=== PATIENT | female | born 1990 | race American Indian/Alaskan Native ===

== ENCOUNTER 2021-07-18 17:34 | Inpatient (IN) | payer MEDICAID ==
[2021-07-18] MEDS ORDERED: TERBUTALINE 1 MG/1 ML INJ SUB-Q PRN (19:35)
[2021-07-18] MEDS ORDERED: fentaNYL 100 MCG/2 ML INJ IV PRN (19:35)
[2021-07-18] MEDS ORDERED: METHYLERGONOVINE MALEATE 0.2 MG/ML VIAL IM PRN (19:35)
[2021-07-18] MEDS ORDERED: BUTORPHANOL 2 MG/1 ML INJ IV PRN ×2 (19:35)
[2021-07-18] MEDS ORDERED: ACETAMINOPHEN 325 MG TAB PO PRN (19:35)
[2021-07-18] MEDS ORDERED: LACTATED RINGERS 1,000 ML ONE (19:35)
[2021-07-18] MEDS ORDERED: OXYTOCIN 10 UNIT/1 ML INJ IM PRN (19:35)
[2021-07-18] MEDS ORDERED: AMPICILLIN/NS 2 GM/100 ML 2 GM/100 ML BAG IV ONE (19:35)
[2021-07-18] MEDS ORDERED: miSOPROStol 200 MCG TAB PR PRN (19:35)
[2021-07-18] MEDS ORDERED: LOPERAMIDE 2 MG CAP PO PRN (19:35)
[2021-07-18] MEDS ORDERED: CARBOPROST TROMETHAMINE 250 MCG/1 ML INJ IM PRN (19:35)
[2021-07-18] MEDS ORDERED: MINERAL OIL 30 ML ORAL LIQD PO PRN (19:35)
[2021-07-18] MEDS ORDERED: LIDOCAINE (2%) 20 MG/1 ML VIAL 20 ML MDV INFILTRATI ONE (19:35)
[2021-07-18] MEDS ORDERED: OXYTOCIN DRIP 30 UNITS/500 ML BAG IV SCH (20:00)
[2021-07-18 20:32] LABS: Hemoglobin 10.4 gm/dl (10.1-14.3); Mean Corpuscular HGB Conc 34 % (30-34); Mean Corpuscular Volume 85 fl (79-97); Platelet Count 255 K/mm3 (140-440); Red Blood Count 3.63 M/mm3 (3.65-5.03); Red Cell Distribution Width 14.9 % (13.2-15.2)
[2021-07-18] MEDS ORDERED: MAGNESIUM SULFATE 2 GM/50 ML BAG IV ONE (20:39)
[2021-07-18 20:51] LABS: Uric Acid 4.6 mg/dL (3.5-7.6)
[2021-07-18 20:54] LABS: Alanine Aminotransferase < 5 units/L (7-56)
[2021-07-18] MEDS: LACTATED RINGERS 1,000 ML IV SCH (20:56)
[2021-07-18] MEDS: OXYTOCIN DRIP 30 UNITS/500 ML BAG IV SCH (20:57)
[2021-07-18] MEDS: AMPICILLIN/NS 1 GM/50 ML 1 GM/50 ML BAG IV SCH (22:45)
[2021-07-18] MEDS: MAGNESIUM SULFATE 40GM/1000ML 40 GM/1,000 ML BAG IV SCH (22:49)
[2021-07-18] MEDS ORDERED: fentaNYL-BUPIV 2 MCG/ML-0.125% 200 MCG/100 ML BAG EPIDURAL ONE (22:52)
[2021-07-18 23:03] LABS: Bilirubin,Urine SM (Negative); Blood,Urine NEG (Negative); Color,Urine Amber (Yellow); Mucus,Urine 3+ /HPF; RBC,Urine < 1.0 /HPF (0.0-6.0)
[2021-07-18] MEDS ORDERED: NALOXONE 2 MG/2 ML INJ IV PRN (23:04)
[2021-07-18] MEDS ORDERED: ePHEDrine SULFATE 50 MG/1 ML INJ IV PRN (23:04)
[2021-07-18 23:12] LABS: Ictotest,Urine Negative (Negative)
--- NOTE | 2021-07-18 23:50 | Anesthesia Consultation ---
Anesthesia Consult and Med Hx Date of service: 07/18/21 - Airway Anesthetic Teeth Evaluation: Poor ROM Head & Neck: Adequate Mental/Hyoid Distance: Adequate Mallampati Class: Class III Intubation Access Assessment: Possibly Difficult - Pulmonary Exam CTA: Yes - Cardiac Exam Cardiac Exam: RRR - Pre-Operative Health Status ASA Pre-Surgery Classification: ASA3 Proposed Anesthetic Plan: Epidural - Pulmonary Hx Smoking: No Hx Asthma: No Hx Respiratory Symptoms: No SOB: No COPD: No Home Oxygen Therapy: No Hx Pneumonia: No Hx Sleep Apnea: No - Cardiovascular System Hx Hypertension: No Hx Coronary Artery Disease: No Hx Heart Attack/AMI: No Hx Angina: No Hx Percutaneous Transluminal Coronary Angioplasty (PTCA): No Hx Cardia Arrhythmia: No Hx Pacemaker: No Hx Internal Defibrillator: No Hx Valvular Heart Disease: No Hx Heart Murmur: No Hx Peripheral Vascular Disease: No - Central Nervous System Hx Neuromuscular Disorder: No Hx Seizures: No CVA: No Hx Back Pain: Yes Hx Psychiatric Problems: No - Gastrointestinal Hx Ulcer: No Hx Gastroesophageal Reflux Disease: Yes - Endocrine Hx Renal Disease: No Hx End Stage Renal Disease: No Hx Cirrhosis: No Hx Liver Disease: No Hx Insulin Dependent Diabetes: No Hx Non-Insulin Dependent Diabetes: No Hx Thyroid Disease: No Hx Hypothyroidism: No Hx Hyperthyroidism: No - Hematic Hx Anemia: No Hx Sickle Cell Disease: No - Other Systems Hx Alcohol Use: No Hx Substance Use: No Hx Cancer: No Hx Obesity: Yes
[2021-07-18] MEDS: fentaNYL-BUPIV 2 MCG/ML-0.125% 200 MCG/100 ML BAG EPIDURAL SCH (23:51)
--- NOTE | 2021-07-18 23:54 | Progress Note ---
Labor Epidural - Labor Epidural Start Time: 23:21 Stop Time: 23:35 Performed by:: FARRUKH GASPAR Procedure: Patient is requesting a laboring epidural for laboring pain. Patient IDed, H&P reviewed, all questions and concerns were answered, and consent was signed. Timeout was performed at bedside. Patient in sitting position. Sterile prep and drape was performed. [3] ml of 1% lidocaine skin wheal at L[3]- L [4]. 18- gauge Usman epidural needle was advanced to loss of resistance with saline technique 8cm. Negative CSF negative blood. Epidural catheter advanced to [12] centimeters. [NEGATIVE] Aspiration [NEGATIVE] test dose. Sterile dressing applied. Patient tolerated procedure.
[2021-07-19] MEDS: ePHEDrine SULFATE 50 MG/1 ML INJ IV PRN ×3 (00:35→00:52)
--- NOTE | 2021-07-19 00:47 | History and Physical Report ---
History of Present Illness Date of examination: 07/18/21 Date of admission: 07/18/21 17:34 Chief complaint: I was sent here to be induced. History of present illness: 31 y/o AA female presented to L&D for an IOL r/t LOUIE per LISA. Pt denies VB or LOF, but admits to marcelo, visual disturbances, and active FM. Pt states she initiated her pnc at [facility] early in her preg. She was co managed by LISA r/t DEYANIRA. She reports an ob hx of PI with each preg. She denies any other med or obstetrical problems. Unremarkable surgical, social, and family hx. Her GBS is unknown. Pt was admitted to L&D for an IOL. Past History Past Medical History: other ([facility]) Past Surgical History: no surgical history Family/Genetic History: none Social history: single, full code - Obstetrical History Expected Date of Delivery: 08/06/21 Actual Gestation: 37 Week(s) 3 Day(s) : 5 Para: 4 Hx # Term Pregnancies: 4 Number of Living Children: 4 Medications and Allergies Allergies Allergy/AdvReac Type Severity Reaction Status Date / Time shellfish derived AdvReac Hives Verified 08/05/18 22:24 Home Medications Medication Instructions Recorded Confirmed Last Taken Type Labetalol 100 mg PO BID 08/05/18 08/05/18 08/05/18 09:30 History HYDROcodone/APAP 5-325 [Marlow 1 each PO Q6HR PRN #5 tablet 08/06/18 Unknown Rx 5/325] Ibuprofen [Motrin 800 MG tab] 800 mg PO Q8HR PRN #30 tablet 08/06/18 Unknown Rx Multivitamin with Iron 1 each PO DAILY #30 tablet 08/06/18 Unknown Rx [Multivitamins with Iron] Active Meds: Active Medications Acetaminophen (Acetaminophen 325 Mg Tab) 650 mg PO Q4H PRN PRN Reason: Pain, Mild (1-3) Butorphanol Tartrate (Butorphanol 2 Mg/1 Ml Inj) 1 mg IV Q2H PRN PRN Reason: Pain, Moderate(4-6) LABOR PAIN Butorphanol Tartrate (Butorphanol 2 Mg/1 Ml Inj) 2 mg IV Q2H PRN PRN Reason: Pain , Severe (7-10) Carboprost Tromethamine (Carboprost Tromethamine 250 Mcg/1 Ml Inj) 250 mcg IM ONCE PRN PRN Reason: Uterine Bleeding Ephedrine Sulfate (Ephedrine Sulfate 50 Mg/1 Ml Inj) 10 mg IV Q2M PRN PRN Reason: Hypotension Fentanyl (Fentanyl 100 Mcg/2 Ml Inj) 100 mcg IV Q2H PRN PRN Reason: Pain,Severe (7-10) LABOR PAIN Oxytocin/Sodium Chloride (Pitocin/Ns 30 Unit/500ml) 30 units in 500 mls @ 2 mls/hr IV TITR RAYMOND; Protocol Last Titration: 07/18/21 23:00 Dose: 10 ml/hr, 10 mls/hr Documented by: Lactated Ringer's (Lactated Ringers) 1,000 mls @ 125 mls/hr IV DIRECT RAYMOND Last Admin: 07/18/21 20:56 Dose: 125 mls/hr Documented by: Oxytocin/Sodium Chloride (Pitocin/Ns 30 Unit/500ml) 30 units in 500 mls @ 40 mls/hr IV TITR RAYMOND; Protocol Ampicillin Sodium (Ampicillin/Ns 1 Gm/50 Ml) 1 gm in 50 mls @ 100 mls/hr IV Q4H RAYMOND; Protocol Last Admin: 07/18/21 22:45 Dose: 100 mls/hr Documented by: Magnesium Sulfate (Magnesium Sulfate 40gm/1000ml) 40 gm in 1,000 mls @ 25 mls/hr IV DIRECT RAYMOND Last Admin: 07/18/21 22:49 Dose: 1 gm/hr, 25 mls/hr Documented by: Fentanyl/Bupivacaine/Sodium Chlor (Fentanyl-Bupiv 2 Mcg/Ml-0.125%) 200 mcg in 100 mls @ 12 mls/hr EPIDURAL TITR RAYMOND; Protocol Last Admin: 07/18/21 23:51 Dose: 12 mls/hr Documented by: Loperamide HCl (Loperamide 2 Mg Cap) 2 mg PO ONCE PRN PRN Reason: give with Hemabate Methylergonovine Maleate (Methylergonovine Maleate 0.2 Mg/Ml Vial) 0.2 mg IM ONCE PRN PRN Reason: Uterine Bleeding Mineral Oil (Mineral Oil 30 Ml Oral Liqd) 30 ml PO QHS PRN PRN Reason: Constipation Misoprostol (Misoprostol 200 Mcg Tab) 800 mcg VA ONCE PRN PRN Reason: Uterine Bleeding Naloxone HCl (Naloxone 2 Mg/2 Ml Inj) 0.2 mg IV Q5M PRN PRN Reason: Respiratory sedation Ondansetron HCl (Ondansetron 4 Mg/2 Ml Inj) 4 mg IV Q8H PRN PRN Reason: Nausea And Vomiting Oxytocin (Oxytocin 10 Unit/1 Ml Inj) 10 unit IM ONCE PRN PRN Reason: Uterine Bleeding Terbutaline Sulfate (Terbutaline 1 Mg/1 Ml Inj) 0.25 mg SUB-Q ONCE PRN PRN Reason: Hyperstimulation/Hypertonicity Review of Systems All systems: negative Eyes: deferred Ears, nose, mouth and throat: deferred Breasts: normal Genitourinary: normal appearance Rectal Exam: normal exam-external/orifice - Vital Signs Vital signs: Vital Signs Pulse BP 74 113/76 07/18/21 18:59 07/18/21 18:59 Temp Pulse Resp BP Pulse Ox 98.1 F 77 81/44 98 07/18/21 19:30 07/19/21 00:44 07/19/21 00:42 07/19/21 00:44 - Physical Exam Breasts: Positive: normal Abdomen: Positive: normal appearance, soft, normal bowel sounds, other (GRAVID) Genitourinary (Female): Positive: normal external genitalia, normal perenium Vulva: both: normal Vagina: Positive: normal moisture Uterus: Positive: enlarged, normal contour, other (GRAVID) Adnexa: both: normal Anus/Rectum: Positive: normal perianal skin Extremities: Positive: normal Deep Tendon Reflex Grade: Normal +2 - Obstetrical FHR: auscultation normal, category 1 Uterine Contraction Monitor Mode: External Cervical Dilatation: 3 Cervical Effacement Percentage: 60 station: -3 Uterine Contraction Pattern: Irregular Uterine Tone Measurement Phase: Resting Uterine Contraction Intensity: Mild Results Result Diagrams: 07/18/21 19:50 07/18/21 19:50 Abnormal lab results 07/18/21 07/18/21 07/18/21 Range/Units 19:50 19:50 22:36 WBC 11.8 H (4.5-11.0) K/mm3 RBC 3.63 L (3.65-5.03) M/mm3 Creatinine 0.5 L (0.6-1.2) mg/dL ALT < 5 L (7-56) units/L Lactate Dehydrogenase 326 H (91-180) units/L Ur Specific [place] 1.035 H (1.003-1.030) All other labs normal. Assessment and Plan A: IUP@ 37.3 wks with PIH No PNR GBS status unknown P: Admit to L&D for an IOL Start MgSo4 per orders Mg Levels q 6h PIH labs Continuos monitoring Pain med/Epidural prn GBS protocal Obtain PNR in am Anticipate - Patient Problems (1) Supervision of normal IUP (intrauterine ) in multigravida Current Visit: Yes Status: Acute
[2021-07-19] MEDS: AMPICILLIN/NS 1 GM/50 ML 1 GM/50 ML BAG IV SCH ×2 (03:40→21:55)
[2021-07-19] MEDS: ONDANSETRON 4 MG/2 ML INJ IV PRN ×2 (08:40→17:16)
--- NOTE | 2021-07-19 11:00 | Event Note ---
Date: 07/19/21 Assumed care of patient at 10:30 AM. SVE 4/70/-2. Patient positioned in left lateral position with peanut ball. Vital signs stable. FHR reassuring.
[2021-07-19] MEDS: fentaNYL-BUPIV 2 MCG/ML-0.125% 200 MCG/100 ML BAG EPIDURAL SCH (16:06)
[2021-07-19] MEDS: OXYTOCIN DRIP 30 UNITS/500 ML BAG IV SCH (16:13)
[2021-07-19] MEDS: LACTATED RINGERS 1,000 ML IV SCH (16:13)
--- NOTE | 2021-07-19 17:11 | Event Note ---
Date: 07/19/21 Patient had several variable FHR decelerations; normal FHR baseline and moderate variability. IUPC inserted without difficulty and amnioinfusion ordered. SVE 5/100/-1.
[2021-07-19] MEDS ORDERED: SODIUM CHLORIDE 0.9% 1000 ML 1,000 ML VG SCH (17:15)
--- NOTE | 2021-07-20 00:17 | Procedure Note ---
OB Delivery Note - Delivery Date of Delivery: 07/20/21 Surgeon: ALEXANDRU BOATENG Estimated blood loss: other (250 cc) - Vaginal Delivery presentation: vertex Delivery position: OA Intrapartum events: none Delivery induction: none Delivery augmentation: pitocin Delivery monitor: external FHT, external uterine Delivery placenta: spontaneous Delivery cord: 3 umbilical vessels Episiotomy: none Delivery laceration: 1st degree Delivery repair: vicryl Anesthesia: intravenous Delivery comments: Spontaneous vaginal delivery at 23:11 of liveborm male infant weighing 7 lb. 2 oz. over first degree perineal laceration with apgars of 8/9. was atraumatic; no nuchal cord. Baby was placed skin to skin with mom immediately after delivery. Baby dried with warm blankets, suctioned with bulb syringe and stimulated. Spontaneous cry and respirations. 3 vessel cord double clamped and cut (delayed cord clamping) and baby taken to radiant warmer for further suctioning. Spontaneous delivery of intact placenta and membranes. EBL 250 cc. Pitocin to IV fluids after delivery of placenta. Fundus firm and midline. Very small first degree perineal laceration repaired with 3-0 vicryl. No other lacerations noted. Vaginal sweep negative. Sponge count correct. Mother and baby stable in birthing room.
[2021-07-20] MEDS: MAGNESIUM SULFATE 40GM/1000ML 40 GM/1,000 ML BAG IV SCH ×2 (00:46→17:01)
[2021-07-20] MEDS ORDERED: hydrALAZINE 20 MG/1 ML INJ IV PRN (00:50)
--- NOTE | 2021-07-20 00:55 | Event Note ---
Date: 07/20/21 BPs starting to go up again. Magnesium Sulfate restarted. See orders. Mag levels ordered. Hydralazine ordered.
[2021-07-20] MEDS ORDERED: ONDANSETRON 4 MG/2 ML INJ IV PRN (01:25)
[2021-07-20] MEDS ORDERED: WITCH HAZEL/ GLYCERIN PAD TP PRN (01:25)
[2021-07-20] MEDS ORDERED: LANOLIN/ZINC/DIMETHICONE (LANSINOH) 7 GM TP PRN (01:25)
[2021-07-20] MEDS ORDERED: MAGNESIUM HYDROXIDE (MOM) ORAL LIQD UDC PO PRN (01:25)
[2021-07-20] MEDS ORDERED: ACETAMINOPHEN 325 MG TAB PO PRN (01:25)
[2021-07-20] MEDS: IBUPROFEN 600 MG TAB PO SCH ×2 (01:41→17:25)
--- NOTE | 2021-07-20 02:02 | Post Anesthesia Evaluation ---
- Post Anesthesia Evaluation Patient Participated: Yes Airway Patent: Yes Stable Respiratory Function: Yes Nausea/Vomiting: No Temp > 96.8F: Yes Pain Manageable: Yes Adequeate Hydration: Yes Anesthesia Complications: No Block Receding Appropriately: Yes Patient on Ventilator: No
--- NOTE | 2021-07-20 06:43 | Progress Note ---
Assessment and Plan PPD#1 on mag sulfate for preeclampsia; pt is normotensive 1. Complete 24hr mag and then transfer to mother/baby for routine 2. all question encouraged and answered Subjective Date of service: 07/20/21 Principal diagnosis: PPD#1 , PIH resolved Interval history: Pt denies headache. Vag bleed less than a period. Denies pelvic pain and mag sulfate currently in progress. Urine in [facility] cath adequate. Objective - Constitutional Vitals: Vital Signs - 12hr 07/19/21 07/19/21 07/19/21 18:42 18:47 18:52 Temperature Pulse Rate 81 69 70 Respiratory Rate Blood Pressure Blood Pressure [Right] O2 Sat by Pulse 99 100 100 Oximetry O2 Sat by Pulse Oximetry [ Bilateral Throughout] 07/19/21 07/19/21 07/19/21 18:57 19:02 19:07 Temperature Pulse Rate 74 72 78 Respiratory Rate Blood Pressure Blood Pressure [Right] O2 Sat by Pulse 100 100 100 Oximetry O2 Sat by Pulse Oximetry [ Bilateral Throughout] 07/19/21 07/19/21 07/19/21 19:12 19:17 19:22 Temperature Pulse Rate 82 78 69 Respiratory Rate Blood Pressure Blood Pressure [Right] O2 Sat by Pulse 100 100 100 Oximetry O2 Sat by Pulse Oximetry [ Bilateral Throughout] 07/19/21 07/19/21 07/19/21 19:25 19:27 19:32 Temperature 98.1 F Pulse Rate 77 76 70 Respiratory 12 Rate Blood Pressure Blood Pressure 109/60 [Right] O2 Sat by Pulse 100 100 100 Oximetry O2 Sat by Pulse 100 Oximetry [ Bilateral Throughout] 07/19/21 07/19/21 07/19/21 19:37 19:42 19:47 Temperature Pulse Rate 78 73 77 Respiratory Rate Blood Pressure Blood Pressure [Right] O2 Sat by Pulse 100 100 100 Oximetry O2 Sat by Pulse Oximetry [ Bilateral Throughout] 07/19/21 07/19/21 07/19/21 19:52 19:57 20:02 Temperature Pulse Rate 72 76 81 Respiratory Rate Blood Pressure Blood Pressure [Right] O2 Sat by Pulse 100 100 100 Oximetry O2 Sat by Pulse Oximetry [ Bilateral Throughout] 07/19/21 07/19/21 07/19/21 20:07 20:12 20:17 Temperature Pulse Rate 81 86 88 Respiratory Rate Blood Pressure Blood Pressure [Right] O2 Sat by Pulse 100 100 100 Oximetry O2 Sat by Pulse Oximetry [ Bilateral Throughout] 07/19/21 07/19/21 07/19/21 20:22 20:27 20:32 Temperature Pulse Rate 78 85 83 Respiratory Rate Blood Pressure Blood Pressure [Right] O2 Sat by Pulse 100 100 100 Oximetry O2 Sat by Pulse Oximetry [ Bilateral Throughout] 07/19/21 07/19/21 07/19/21 20:37 20:42 20:47 Temperature Pulse Rate 77 71 73 Respiratory Rate Blood Pressure Blood Pressure [Right] O2 Sat by Pulse 100 100 100 Oximetry O2 Sat by Pulse Oximetry [ Bilateral Throughout] 07/19/21 07/19/21 07/19/21 20:52 20:57 21:02 Temperature Pulse Rate 70 70 73 Respiratory Rate Blood Pressure Blood Pressure [Right] O2 Sat by Pulse 100 100 100 Oximetry O2 Sat by Pulse Oximetry [ Bilateral Throughout] 07/19/21 07/19/21 07/19/21 21:07 21:12 21:17 Temperature Pulse Rate 74 99 H 71 Respiratory Rate Blood Pressure Blood Pressure [Right] O2 Sat by Pulse 100 100 100 Oximetry O2 Sat by Pulse Oximetry [ Bilateral Throughout] 07/19/21 07/19/21 07/19/21 21:22 21:27 21:32 Temperature Pulse Rate 74 69 71 Respiratory Rate Blood Pressure Blood Pressure [Right] O2 Sat by Pulse 100 100 100 Oximetry O2 Sat by Pulse Oximetry [ Bilateral Throughout] 07/19/21 07/19/21 07/19/21 21:37 21:42 21:47 Temperature Pulse Rate 68 69 67 Respiratory Rate Blood Pressure Blood Pressure [Right] O2 Sat by Pulse 100 100 100 Oximetry O2 Sat by Pulse Oximetry [ Bilateral Throughout] 07/19/21 07/19/21 07/19/21 21:52 21:57 22:02 Temperature Pulse Rate 83 75 73 Respiratory Rate Blood Pressure Blood Pressure [Right] O2 Sat by Pulse 100 100 100 Oximetry O2 Sat by Pulse Oximetry [ Bilateral Throughout] 07/19/21 07/19/21 07/19/21 22:07 22:12 22:17 Temperature Pulse Rate 71 69 82 Respiratory Rate Blood Pressure Blood Pressure [Right] O2 Sat by Pulse 100 100 100 Oximetry O2 Sat by Pulse Oximetry [ Bilateral Throughout] 07/19/21 07/19/21 07/19/21 22:22 22:28 22:32 Temperature Pulse Rate 71 81 74 Respiratory Rate Blood Pressure Blood Pressure [Right] O2 Sat by Pulse 100 100 99 Oximetry O2 Sat by Pulse Oximetry [ Bilateral Throughout] 07/19/21 07/19/21 07/19/21 22:38 22:42 22:47 Temperature Pulse Rate 69 69 67 Respiratory Rate Blood Pressure Blood Pressure [Right] O2 Sat by Pulse 100 100 100 Oximetry O2 Sat by Pulse Oximetry [ Bilateral Throughout] 07/19/21 07/19/21 07/19/21 22:52 22:57 23:03 Temperature Pulse Rate 65 81 97 H Respiratory Rate Blood Pressure Blood Pressure [Right] O2 Sat by Pulse 100 100 100 Oximetry O2 Sat by Pulse Oximetry [ Bilateral Throughout] 07/19/21 07/19/21 07/19/21 23:07 23:12 23:17 Temperature Pulse Rate 95 H 86 86 Respiratory Rate Blood Pressure Blood Pressure [Right] O2 Sat by Pulse 100 100 100 Oximetry O2 Sat by Pulse Oximetry [ Bilateral Throughout] 07/19/21 07/19/21 07/19/21 23:22 23:28 23:32 Temperature Pulse Rate 78 100 H 86 Respiratory Rate Blood Pressure Blood Pressure [Right] O2 Sat by Pulse 100 100 100 Oximetry O2 Sat by Pulse Oximetry [ Bilateral Throughout] 07/19/21 07/19/21 07/19/21 23:38 23:43 23:48 Temperature Pulse Rate 88 86 89 Respiratory Rate Blood Pressure Blood Pressure [Right] O2 Sat by Pulse 100 100 100 Oximetry O2 Sat by Pulse Oximetry [ Bilateral Throughout] 07/19/21 07/19/21 07/20/21 23:53 23:57 00:03 Temperature Pulse Rate 95 H 80 73 Respiratory Rate Blood Pressure Blood Pressure [Right] O2 Sat by Pulse 100 99 99 Oximetry O2 Sat by Pulse Oximetry [ Bilateral Throughout] 07/20/21 07/20/21 07/20/21 00:08 00:13 00:17 Temperature Pulse Rate 79 77 82 Respiratory Rate Blood Pressure Blood Pressure [Right] O2 Sat by Pulse 100 100 99 Oximetry O2 Sat by Pulse Oximetry [ Bilateral Throughout] 07/20/21 07/20/21 07/20/21 00:23 00:24 00:28 Temperature Pulse Rate 77 73 76 Respiratory Rate Blood Pressure 144/93 Blood Pressure [Right] O2 Sat by Pulse 99 98 Oximetry O2 Sat by Pulse Oximetry [ Bilateral Throughout] 07/20/21 07/20/21 07/20/21 00:33 00:38 00:41 Temperature Pulse Rate 75 78 71 Respiratory Rate Blood Pressure 166/94 Blood Pressure [Right] O2 Sat by Pulse 100 99 Oximetry O2 Sat by Pulse Oximetry [ Bilateral Throughout] 07/20/21 07/20/21 07/20/21 00:43 00:48 00:53 Temperature Pulse Rate 74 74 67 Respiratory Rate Blood Pressure 159/89 Blood Pressure [Right] O2 Sat by Pulse 100 100 100 Oximetry O2 Sat by Pulse Oximetry [ Bilateral Throughout] 07/20/21 07/20/21 07/20/21 00:56 00:57 00:59 Temperature Pulse Rate 67 69 Respiratory Rate Blood Pressure 160/83 Blood Pressure [Right] O2 Sat by Pulse 100 Oximetry O2 Sat by Pulse 99 Oximetry [ Bilateral Throughout] 07/20/21 07/20/21 07/20/21 01:00 01:03 01:08 Temperature 98.2 F Pulse Rate 72 73 Respiratory Rate Blood Pressure Blood Pressure [Right] O2 Sat by Pulse 99 100 Oximetry O2 Sat by Pulse Oximetry [ Bilateral Throughout] 07/20/21 07/20/21 07/20/21 01:11 01:13 01:18 Temperature Pulse Rate 65 74 64 Respiratory Rate Blood Pressure 147/71 Blood Pressure [Right] O2 Sat by Pulse 100 99 Oximetry O2 Sat by Pulse Oximetry [ Bilateral Throughout] 07/20/21 07/20/21 07/20/21 01:23 01:26 01:28 Temperature Pulse Rate 66 64 90 Respiratory Rate Blood Pressure 145/75 Blood Pressure [Right] O2 Sat by Pulse 99 98 Oximetry O2 Sat by Pulse Oximetry [ Bilateral Throughout] 07/20/21 07/20/21 07/20/21 01:33 01:38 01:41 Temperature Pulse Rate 75 75 66 Respiratory Rate Blood Pressure 145/80 Blood Pressure [Right] O2 Sat by Pulse 100 99 Oximetry O2 Sat by Pulse Oximetry [ Bilateral Throughout] 07/20/21 07/20/21 07/20/21 01:43 01:48 01:53 Temperature Pulse Rate 71 71 72 Respiratory Rate Blood Pressure Blood Pressure [Right] O2 Sat by Pulse 100 100 100 Oximetry O2 Sat by Pulse Oximetry [ Bilateral Throughout] 07/20/21 07/20/2121 01:56 01:57 02:03 Temperature Pulse Rate 65 66 63 Respiratory Rate Blood Pressure 157/88 Blood Pressure [Right] O2 Sat by Pulse 99 100 Oximetry O2 Sat by Pulse Oximetry [ Bilateral Throughout] 07/20/21 07/20/21 07/20/21 02:08 02:11 02:13 Temperature Pulse Rate 66 63 65 Respiratory Rate Blood Pressure 140/75 Blood Pressure [Right] O2 Sat by Pulse 100 100 Oximetry O2 Sat by Pulse Oximetry [ Bilateral Throughout] 07/20/21 07/20/21 07/20/21 02:18 02:23 02:26 Temperature Pulse Rate 66 64 63 Respiratory Rate Blood Pressure 135/78 Blood Pressure [Right] O2 Sat by Pulse 100 100 Oximetry O2 Sat by Pulse Oximetry [ Bilateral Throughout] 07/20/21 07/20/21 07/20/21 02:28 02:33 02:38 Temperature Pulse Rate 64 64 63 Respiratory Rate Blood Pressure Blood Pressure [Right] O2 Sat by Pulse 100 100 99 Oximetry O2 Sat by Pulse Oximetry [ Bilateral Throughout] 07/20/21 07/20/21 07/20/21 02:41 02:43 02:48 Temperature Pulse Rate 64 76 68 Respiratory Rate Blood Pressure 133/77 Blood Pressure [Right] O2 Sat by Pulse 100 100 Oximetry O2 Sat by Pulse Oximetry [ Bilateral Throughout] 07/20/21 07/20/21 07/20/21 02:53 02:56 02:58 Temperature Pulse Rate 83 67 83 Respiratory Rate Blood Pressure 134/79 Blood Pressure [Right] O2 Sat by Pulse 99 100 Oximetry O2 Sat by Pulse Oximetry [ Bilateral Throughout] 07/20/21 07/20/21 07/20/21 03:03 03:08 03:11 Temperature Pulse Rate 67 68 65 Respiratory Rate Blood Pressure 130/75 Blood Pressure [Right] O2 Sat by Pulse 99 99 Oximetry O2 Sat by Pulse Oximetry [ Bilateral Throughout] 07/20/21 07/20/21 07/20/21 03:13 03:18 03:23 Temperature Pulse Rate 73 75 66 Respiratory Rate Blood Pressure Blood Pressure [Right] O2 Sat by Pulse 100 100 100 Oximetry O2 Sat by Pulse Oximetry [ Bilateral Throughout] 07/20/21 07/20/21 07/20/21 03:26 03:28 03:33 Temperature Pulse Rate 68 67 66 Respiratory Rate Blood Pressure 134/83 Blood Pressure [Right] O2 Sat by Pulse 100 98 Oximetry O2 Sat by Pulse Oximetry [ Bilateral Throughout] 07/20/21 07/20/21 07/20/21 03:38 03:41 03:43 Temperature Pulse Rate 71 67 74 Respiratory Rate Blood Pressure 134/76 Blood Pressure [Right] O2 Sat by Pulse 100 100 Oximetry O2 Sat by Pulse Oximetry [ Bilateral Throughout] 07/20/21 07/20/21 07/20/21 03:48 03:53 03:56 Temperature Pulse Rate 81 64 71 Respiratory Rate Blood Pressure 127/79 Blood Pressure [Right] O2 Sat by Pulse 100 100 Oximetry O2 Sat by Pulse Oximetry [ Bilateral Throughout] 07/20/21 07/20/21 07/20/21 03:58 04:03 04:08 Temperature Pulse Rate 71 68 69 Respiratory Rate Blood Pressure Blood Pressure [Right] O2 Sat by Pulse 100 100 100 Oximetry O2 Sat by Pulse Oximetry [ Bilateral Throughout] 07/20/21 07/20/21 07/20/21 04:11 04:13 04:18 Temperature Pulse Rate 68 67 76 Respiratory Rate Blood Pressure 129/77 Blood Pressure [Right] O2 Sat by Pulse 100 100 Oximetry O2 Sat by Pulse Oximetry [ Bilateral Throughout] 07/20/21 07/20/21 07/20/21 04:23 04:26 04:28 Temperature Pulse Rate 72 68 73 Respiratory Rate Blood Pressure 114/67 Blood Pressure [Right] O2 Sat by Pulse 99 99 Oximetry O2 Sat by Pulse Oximetry [ Bilateral Throughout] 07/20/21 07/20/21 07/20/21 04:33 04:38 04:41 Temperature Pulse Rate 68 67 65 Respiratory Rate Blood Pressure 107/61 Blood Pressure [Right] O2 Sat by Pulse 100 100 Oximetry O2 Sat by Pulse Oximetry [ Bilateral Throughout] 07/20/21 07/20/21 07/20/21 04:43 04:48 04:53 Temperature Pulse Rate 66 66 66 Respiratory Rate Blood Pressure Blood Pressure [Right] O2 Sat by Pulse 100 100 100 Oximetry O2 Sat by Pulse Oximetry [ Bilateral Throughout] 07/20/21 07/20/21 07/20/21 04:56 04:58 05:03 Temperature Pulse Rate 65 70 66 Respiratory Rate Blood Pressure 110/70 Blood Pressure [Right] O2 Sat by Pulse 100 100 Oximetry O2 Sat by Pulse Oximetry [ Bilateral Throughout] 07/20/21 07/20/21 07/20/21 05:08 05:11 05:13 Temperature Pulse Rate 76 67 72 Respiratory Rate Blood Pressure 113/72 Blood Pressure [Right] O2 Sat by Pulse 100 100 Oximetry O2 Sat by Pulse Oximetry [ Bilateral Throughout] 07/20/21 07/20/21 07/20/21 05:18 05:23 05:26 Temperature Pulse Rate 67 66 72 Respiratory Rate Blood Pressure 119/75 Blood Pressure [Right] O2 Sat by Pulse 100 100 Oximetry O2 Sat by Pulse Oximetry [ Bilateral Throughout] 07/20/21 07/20/21 07/20/21 05:28 05:33 05:38 Temperature Pulse Rate 69 65 71 Respiratory Rate Blood Pressure Blood Pressure [Right] O2 Sat by Pulse 100 99 99 Oximetry O2 Sat by Pulse Oximetry [ Bilateral Throughout] 07/20/21 07/20/21 07/20/21 05:43 05:48 05:53 Temperature Pulse Rate 69 70 69 Respiratory Rate Blood Pressure Blood Pressure [Right] O2 Sat by Pulse 99 99 99 Oximetry O2 Sat by Pulse Oximetry [ Bilateral Throughout] 07/20/21 07/20/21 07/20/21 05:58 06:03 06:08 Temperature Pulse Rate 71 69 74 Respiratory Rate Blood Pressure Blood Pressure [Right] O2 Sat by Pulse 99 99 99 Oximetry O2 Sat by Pulse Oximetry [ Bilateral Throughout] 07/20/21 07/20/21 07/20/21 06:11 06:13 06:18 Temperature Pulse Rate 81 77 70 Respiratory Rate Blood Pressure 122/77 Blood Pressure [Right] O2 Sat by Pulse 100 99 Oximetry O2 Sat by Pulse Oximetry [ Bilateral Throughout] 07/20/21 07/20/21 07/20/21 06:23 06:28 06:33 Temperature Pulse Rate 70 72 70 Respiratory Rate Blood Pressure Blood Pressure [Right] O2 Sat by Pulse 99 99 99 Oximetry O2 Sat by Pulse Oximetry [ Bilateral Throughout] General appearance: Present: no acute distress - Respiratory Respiratory effort: normal - Breasts Breasts: normal Extremities: No edema - Genitourinary Female genitourinary: other (Fundus firm, non-tender 2cm below umbilicus) - Neurologic Neurologic: CNII-XII intact - Psychiatric Psychiatric: appropriate mood/affect - Labs CBC & Chem 7: 07/18/21 19:50 07/18/21 19:50 Medications & Allergies - Medications Allergies/Adverse Reactions: Allergies shellfish derived Adverse Reaction (Verified 08/05/18 22:24) Hives Home Medications: Home Medications Medication Instructions Recorded Confirmed Last Taken Type Labetalol 100 mg PO BID 08/05/18 07/19/21 08/05/18 09:30 History Multivitamin with Iron 1 each PO DAILY #30 tablet 08/06/18 07/19/21 Unknown Rx [Multivitamins with Iron] Active Medications: Generic Name Dose Route Start Last Admin Trade Name Freq PRN Reason Stop Dose Admin Acetaminophen 650 mg 07/20/21 01:25 Acetaminophen 325 Mg Tab PO Q4H PRN Pain MILD(1-3)/Fever >100.5/LYONS Hydrocodone Bitart/Acetaminophen 2 each 07/20/21 01:25 Hydrocodone/Acetaminophen 5-325 Mg Tab PO Q6H PRN Pain, Moderate (4-6) Carboprost Tromethamine 250 mcg 07/18/21 19:35 Carboprost Tromethamine 250 Mcg/1 Ml Inj IM ONCE PRN Uterine Bleeding Docusate Sodium 100 mg 07/20/21 10:00 Docusate Sodium 100 Mg Cap PO BID RAYMOND Hydralazine HCl 5 mg 07/20/21 00:50 Hydralazine 20 Mg/1 Ml Inj IV Q30MIN PRN Hypertension Oxytocin/Sodium Chloride 30 units in 500 mls @ 2 mls/hr 07/18/21 20:00 07/19/21 17:26 Pitocin/Ns 30 Unit/500ml IV 2 mls/hr TITR RAYMOND Titration Protocol Oxytocin/Sodium Chloride 30 units in 500 mls @ 40 mls/hr 07/18/21 20:00 Pitocin/Ns 30 Unit/500ml IV TITR RAYMOND Protocol Magnesium Sulfate 40 gm in 1,000 mls @ 25 mls/hr 07/18/21 20:00 07/20/21 00:46 Magnesium Sulfate 40gm/1000ml IV 2 gm/hr DIRECT RAYMOND 50 mls/hr Administration 1 GM/HR Fentanyl/Bupivacaine/Sodium Chlor 200 mcg in 100 mls @ 12 mls/hr 07/18/21 23:45 07/19/21 16:06 Fentanyl-Bupiv 2 Mcg/Ml-0.125% EPIDURAL 12 mls/hr TITR RAYMOND Administration Protocol Sodium Chloride 1,000 mls @ 0 mls/hr 07/19/21 17:15 07/19/21 17:17 Nacl 0.9% 1000 Ml VG 75 mls/hr DIRECT RAYMOND Administration As Directed Ibuprofen 600 mg 07/20/21 01:45 07/20/21 01:41 Ibuprofen 600 Mg Tab PO 600 mg Q6HR RAYMOND Administration Loperamide HCl 2 mg 07/18/21 19:35 Loperamide 2 Mg Cap PO ONCE PRN give with Hemabate Magnesium Hydroxide 30 ml 07/20/21 01:25 Magnesium Hydroxide (Mom) Oral Liqd Udc PO HS PRN Constipation Methylergonovine Maleate 0.2 mg 07/18/21 19:35 Methylergonovine Maleate 0.2 Mg/Ml Vial IM ONCE PRN Uterine Bleeding Misoprostol 800 mcg 07/18/21 19:35 Misoprostol 200 Mcg Tab AZ ONCE PRN Uterine Bleeding Multi-Ingredient Ointment 1 applic 07/20/21 01:25 Lanolin/Zinc/Dimethicone (Lansinoh) 7 Gm TP PRN PRN Sore Nipples Naloxone HCl 0.2 mg 07/18/21 23:04 Naloxone 2 Mg/2 Ml Inj IV Q5M PRN Respiratory sedation Ondansetron HCl 4 mg 07/20/21 01:25 Ondansetron 4 Mg/2 Ml Inj IV Q8H PRN Nausea And Vomiting Sodium Chloride 10 ml 07/20/21 02:00 Sodium Chloride 0.9% 10 Ml Flush Syringe IV 07/21/21 01:59 PRN NR Witch Modesta/Glycerin 1 each 07/20/21 01:25 Witch [place]/ Glycerin Pad TP PRN PRN Hemorrhoid/cleansing/soothing
[2021-07-20] MEDS: HYDROcodone/ACETAMINOPHEN 5-325 MG TAB PO PRN (13:08)
[2021-07-20 13:34] LABS: Hematocrit 28.8 % (30.3-42.9); Hemoglobin 9.6 gm/dl (10.1-14.3)
[2021-07-20] MEDS ORDERED: LACTATED RINGERS 1,000 ML ONE (14:21)
[2021-07-20] MEDS ORDERED: LACTATED RINGERS 1,000 ML IV SCH (15:30)
--- NOTE | 2021-07-20 19:32 | Event Note ---
Date: 07/20/21 pt evaluated and doing well. Will transfer to for routine care. Will discontinue magnesium sulfate at this time. Nurse notified to do same.
[2021-07-21] MEDS: IBUPROFEN 600 MG TAB PO SCH ×3 (00:21→12:26)
[2021-07-21] MEDS: DOCUSATE SODIUM 100 MG CAP PO SCH ×2 (00:21→10:11)
[2021-07-21] MEDS ORDERED: FERROUS SULFATE 325 MG TAB PO SCH (13:00)
--- NOTE | 2021-07-21 13:01 | Progress Note ---
Assessment and Plan A: day 2 S/P . PIH: BPs stable. Anemia. P: Continue oral iron supplementation. Continue to monitor BPs. Anticipate discharge home tomorrow if patient continues to do well. Subjective - Subjective Date of service: 07/21/21 Principal diagnosis: PPD#2 , PIH Interval history: Patient denies headache, visual disturbance, nausea or vomiting, abdominal or epigastric pain, chest pain, leg pain, or any other problems. Patient reports: appetite normal, voiding normally, pain well controlled, flatus, ambulating normally, no dizzy ambulation, no nauseated [place]: doing well Objective - Vital Signs Latest vital signs: Vital Signs Temp Pulse Resp BP BP Pulse Ox Pulse Ox 07/21/21 08:45 97 07/21/21 08:10 98.2 F 60 20 118/74 99 07/21/21 06:24 97 07/21/21 04:53 68 124/77 98 07/21/21 04:30 98 07/21/21 01:45 98 07/21/21 00:19 99 07/21/21 00:15 98.2 F 62 20 121/79 99 07/20/21 21:30 98 07/20/21 21:25 98.4 F 65 20 125/78 98 07/20/21 20:50 88 80 L 07/20/21 20:47 63 79 L 07/20/21 20:43 65 99 07/20/21 20:38 67 100 07/20/21 20:33 73 100 07/20/21 20:28 64 100 07/20/21 20:23 70 100 07/20/21 20:18 61 100 07/20/21 20:13 71 99 07/20/21 20:08 81 100 07/20/21 20:06 75 92 07/20/21 20:04 67 134/86 07/20/21 20:03 71 100 07/20/21 19:58 70 99 07/20/21 19:53 67 100 07/20/21 19:48 72 100 07/20/21 19:43 72 99 07/20/21 19:38 97.9 F 74 18 133/77 99 07/20/21 19:33 95 H 100 07/20/21 19:28 72 100 07/20/21 19:23 69 98 07/20/21 19:18 64 100 07/20/21 19:13 68 100 07/20/21 19:12 61 133/77 07/20/21 19:08 67 100 07/20/21 19:04 79 134/80 07/20/21 19:03 78 100 07/20/21 18:58 69 100 07/20/21 18:53 74 100 07/20/21 18:48 69 100 07/20/21 18:43 87 100 07/20/21 18:38 69 100 07/20/21 18:33 78 100 07/20/21 18:28 76 99 07/20/21 18:23 67 100 07/20/21 18:18 75 100 07/20/21 18:13 76 100 07/20/21 18:08 71 100 07/20/21 18:06 80 91 07/20/21 18:04 63 127/72 07/20/21 18:03 66 100 07/20/21 17:58 70 99 07/20/21 17:53 69 100 07/20/21 17:48 66 99 07/20/21 17:43 64 100 07/20/21 17:38 69 99 07/20/21 17:33 64 99 07/20/21 17:28 71 100 07/20/21 17:23 67 100 07/20/21 17:18 71 99 07/20/21 17:13 66 100 07/20/21 17:08 81 99 07/20/21 17:04 61 120/78 07/20/21 17:03 61 100 07/20/21 16:59 97.9 F 07/20/21 16:58 64 99 07/20/21 16:53 64 99 07/20/21 16:48 63 99 07/20/21 16:43 61 99 07/20/21 16:38 80 99 07/20/21 16:33 62 99 07/20/21 16:28 70 99 07/20/21 16:23 62 99 07/20/21 16:18 64 100 07/20/21 16:13 65 99 07/20/21 16:08 70 100 07/20/21 16:04 68 124/86 07/20/21 16:03 77 99 07/20/21 15:58 68 100 07/20/21 15:53 67 99 07/20/21 15:48 63 100 07/20/21 15:43 65 100 07/20/21 15:38 78 100 07/20/21 15:33 81 100 07/20/21 15:28 74 99 07/20/21 15:23 67 100 07/20/21 15:18 67 100 07/20/21 15:13 67 100 07/20/21 15:08 80 100 07/20/21 15:04 64 124/67 07/20/21 15:03 75 100 07/20/21 14:58 71 100 07/20/21 14:53 72 99 07/20/21 14:48 67 99 07/20/21 14:43 73 99 07/20/21 14:38 81 99 07/20/21 14:33 73 100 07/20/21 14:28 71 98 07/20/21 14:23 70 100 07/20/21 14:18 74 98 07/20/21 14:13 69 99 07/20/21 14:08 70 99 07/20/21 14:03 71 100 07/20/21 13:58 70 99 07/20/21 13:53 73 99 07/20/21 13:48 68 99 07/20/21 13:43 70 98 07/20/21 13:41 66 103/56 07/20/21 13:38 70 99 07/20/21 13:33 69 99 07/20/21 13:28 91 H 99 07/20/21 13:23 70 99 07/20/21 13:18 75 99 07/20/21 13:13 72 98 07/20/21 13:08 73 99 07/20/21 13:03 71 131/75 100 07/20/21 12:58 73 99 Intake and Output 07/20/21 07/21/21 07/21/21 23:59 07:59 15:59 Intake Total 812.5 720 240 Output Total 900 400 400 Balance -87.5 320 -160 Intake: IV 812.5 MAGNESIUM SULFATE 40GM/ 812.5 1000ML 40 gm In 1,000 ml @ 1 GM/HR 25 mls/hr IV DIRECT RAYMOND Rx#:[id number] Oral 720 240 Output: Urine 900 400 400 Indwelling Catheter 900 Void 400 400 Other: Total, Intake Amount 240 240 Total, Output Amount 900 400 400 # Voids Void 1 - Exam Cardiovascular: Present: Regular rate Lungs: Present: Clear to auscultation Abdomen: Present: normal appearance, soft, normal bowel sounds. Absent: distention, tenderness, guarding, rigidity Uterus: Present: normal, firm, fundal height below umbilicus. Absent: bogginess, tenderness Extremities: Absent: tenderness - Labs Labs: Abnormal lab results 07/20/21 07/20/21 07/20/21 Range/Units 13:09 13:09 20:13 Hgb 9.6 L (10.1-14.3) gm/dl Hct 28.8 L (30.3-42.9) % Magnesium 5.30 H 4.20 H (1.7-2.3) mg/dL
[2021-07-21] MEDS: HYDROcodone/ACETAMINOPHEN 5-325 MG TAB PO PRN (16:30)
--- NOTE | 2021-07-21 19:09 | Discharge Summary ---
Providers - Providers Date of Admission: 07/18/21 17:34 Date of discharge: 07/21/21 Attending physician: KAREEN ENAMORADO MD Primary care physician: KAREEN ENAMORADO MD Hospitalization Reason for admission: induction of labor Delivery: Episiotomy: none Laceration: 1st degree Other procedures: none complications: none Discharge diagnosis: IUP at term delivered baby: male Pertinent studies: Labs Hospital course: Stable hospital course Condition at discharge: Good Disposition: 01 HOME / SELF CARE / HOMELESS - Discharge Diagnoses (1) Term delivered Status: Acute (2) Anemia Status: Acute Plan - Provider Discharge Summary Activity: routine, no sex for 6 weeks, no heavy lifting 4 weeks, no strenuous exercise Diet: routine Instructions: routine Additional instructions: Continue taking your vitamins and iron supplements at home. Follow up at [facility] office in 2 days. Please call the office tomorrow morning to obtain an appointment. Call your doctor immediately for: * Fever > 100.5 * Heavy vaginal bleeding ( >1 pad per hour) * Severe persistent headache * Shortness of breath * Reddened, hot, painful area to leg or breast - Follow up plan Follow up: KAREEN ENAMORADO MD [Primary Care Provider] - 48 Hours
[2021-07-21 23:44] VITALS: BP 137/81
== END 2021-07-21 22:00 | disposition home or self-care (01) | DRG 775 ==
LOC: LD 17:34 → OB 07-20 21:14
PROC: 3E0R3BZ Introduction of Anesthetic Agent into Spinal Canal, Percutaneous Approach (ICD-10-PCS; 2021-07-18)
PROC: 00HU33Z Insertion of Infusion Device into Spinal Canal, Percutaneous Approach (ICD-10-PCS; 2021-07-18)
PROC: 10E0XZZ Delivery of Products of Conception, External Approach (ICD-10-PCS; principal; 2021-07-19)
PROC: 0HQ9XZZ Repair Perineum Skin, External Approach (ICD-10-PCS; 2021-07-19)
PROC: 10H07YZ Insertion of Other Device into Products of Conception, Via Natural or Artificial Opening (ICD-10-PCS; 2021-07-19)
DX: O76 Abnormality in fetal heart rate and rhythm complicating labor and delivery (principal); O99.62 Diseases of the digestive system complicating childbirth; K21.9 Gastro-esophageal reflux disease without esophagitis; O99.214 Obesity complicating childbirth; O13.4 Gestational [pregnancy-induced] hypertension without significant proteinuria, complicating childbirth; O70.0 First degree perineal laceration during delivery; O14.94 Unspecified pre-eclampsia, complicating childbirth; O99.02 Anemia complicating childbirth; Z20.822 Contact with and (suspected) exposure to COVID-19; Z37.0 Single live birth; Z3A.37 37 weeks gestation of pregnancy; Z91.013 Allergy to seafood; D64.9 Anemia, unspecified
CPT/HCPCS: 36415; 81001; 82565; 83615; 83735; 84450; 84460; 84550; 85014; 85018; 85027; 85461; 86850; 86900; 86901; 88307; G0378; J0290; J2405; J2590; J2790; J3105; J3475; J7030; J7120; U0003